=== PATIENT | female | born 1975 | race Two or more races ===

== ENCOUNTER 2020-10-24 10:02 | Outpatient (REF) | payer OTHER, SELFPAY ==
--- NOTE | 2020-10-24 10:04 | US_ITS ---
EXAMINATION: US THYROID CLINICAL INFORMATION: Nontoxic single thyroid nodule. COMPARISON: None TECHNIQUE: Linear transducer kulkarni-scale and color Doppler examination with attention to the region of the thyroid. FINDINGS: SIZE: Measurements of the thyroid lobes and nodules are given in sagittal, anteroposterior and transverse dimensions respectively. Right Thyroid Lobe: 5.0 x 1.7 x 1.6 cm, volume 7.1 mL. Parenchyma: The gland echotexture is heterogeneous. Thyroid vascularity is increased. Left Thyroid Lobe: 2.2 x 1.0 x 0.9 cm, volume 1.0 mL. Parenchyma: The gland echotexture is heterogeneous. Thyroid vascularity is increased. Isthmus: 0.4 cm in maximum AP dimension. RIGHT THYROID LOBE: There are 2 nodules seen. 1. Location: Superior/lateral. Size: 0.7 x 0.5 x 0.5 cm. Nodule characteristics: Isoechoic, smoothly marginated with intranodular flow. 2. Location: Inferior/lateral. Size: 1.0 x 0.3 x 0.6 cm. Nodule characteristics: Hypoechoic, smoothly marginated with intranodular flow. ISTHMUS: No nodules. LEFT THYROID LOBE: No nodules. NODES: No abnormal neck lymph node seen. US/US thyroid IMPRESSION: Diffuse heterogenous thyroid gland with 2 small subcentimeter nodules in left gland.
== END 2020-10-24 10:03 | disposition home or self-care (01) ==
LOC: HO.HMGCX 10:02
PROVIDERS: PCP Internal Medicine; Visit Provider Internal Medicine
DX: E04.1 Nontoxic single thyroid nodule (principal)
CPT/HCPCS: 76536

== ENCOUNTER 2021-01-30 06:34 | Outpatient (REF) | payer OTHER, SELFPAY ==
[2021-01-30 12:12] LABS: Alanine Aminotransferase 24 U/L (0-31); Albumin Level 4.4 g/dL (3.5-5.0); Alkaline Phosphatase 44 U/L (39-117); Anion Gap 15 (12-20); Aspartate Amino Transferase 22 U/L (5-31); Bilirubin Total 1.1 mg/dL (0.0-1.0); Blood Urea Nitrogen 6 mg/dL (9-16); Calcium 9.3 mg/dL (8.4-10.2); Carbon Dioxide 26 mmol/L (22-29); Chloride 104 mmol/L (96-108); Cholesterol 160 mg/dL; Estimated Glomerular Filt Rate > 60; Glucose Fasting 68 mg/dL (60-99); HDL Cholesterol 38 mg/dL; LDL Cholesterol Calculated 95 mg/dl; Potassium 4.5 mmol/L (3.3-5.1); Sodium 140 mmol/L (135-145); Triglycerides 137 mg/dL
[2021-01-30 12:35] LABS: TSH reflex Free T4 1.39 uIU/mL (0.32-4.0)
[2021-01-31 06:56] LABS: Thyroglobulin Antibodies <1 IU/mL (< or = 1); Thyroid Peroxidase Antibodies 58 IU/mL (<9)
== END 2021-01-30 06:35 | disposition home or self-care (01) ==
LOC: HO.HMGCLDS 06:34
PROVIDERS: PCP Internal Medicine; Visit Provider Internal Medicine
DX: E66.9 Obesity, unspecified (principal); E03.9 Hypothyroidism, unspecified; E04.1 Nontoxic single thyroid nodule
CPT/HCPCS: 36415; 80053; 80061; 84443; 86376; 86800

== ENCOUNTER 2021-03-27 09:45 | Outpatient (REF) | payer OTHER, SELFPAY ==
--- NOTE | ~2021-03-27 | MM_ITS ---
EXAMINATION: MM SCREENING DIGITAL BREAST TOMOSYNTHESIS, BILATERAL CLINICAL INFORMATION: Screening. Asymptomatic. No known family history breast cancer. The lifetime risk of breast cancer based on the Tyrer-Cuzick Model is 8%. COMPARISON: Outside hard copy images 04/29/2018 and outside bilateral targeted ultrasound ([facility], [place]). TECHNIQUE: Digital breast tomosynthesis is performed in both the craniocaudal and mediolateral oblique views along with computer-aided detection (CAD). Synthesized 2D images are generated from the tomosynthesis. Additional right CC view is provided. FINDINGS: There are scattered areas of fibroglandular density (ACR BI-RADS breast composition Category b). The right breast is similar to prior outside exam. There is no interval mass or architectural abnormality or parenchymal asymmetry. Neither breast shows abnormal calcifications. The axilla and skin contours are unremarkable. The left CC view has benign-appearing parenchymal asymmetry posterior medial breast extending beyond the posterior film margin. There is no correlate on the MLO view. Current study includes greater depth then achieved on outside exam and finding chronicity is unknown. Patient will be recalled in order to fully characterize the medial left breast. MM/MM tomosynthesis screening BI IMPRESSION: 1. Left: Parenchymal asymmetry posterior medial left breast on CC view extending beyond film margin. 2. Right: No mammographic evidence of malignancy. ASSESSMENT: BI-RADS 0: Incomplete - Need Additional Imaging Evaluation RECOMMENDATION: 1. Additional views of the left breast (3D CC medial; 3D ML). 2. Targeted ultrasound if warranted after review of the additional views. 3. Radiology department staff will contact the patient for additional imaging. This patient's information was entered into a reminder system with a target due date for their next mammogram.
== END 2021-03-27 09:46 | disposition home or self-care (01) ==
LOC: HO.MAMMO 09:45
PROVIDERS: Visit Provider Internal Medicine
DX: Z12.31 Encounter for screening mammogram for malignant neoplasm of breast (principal)
CPT/HCPCS: 77063; 77067

== ENCOUNTER 2021-04-04 07:42 | Outpatient (REF) | payer OTHER, SELFPAY ==
--- NOTE | ~2021-04-04 | MM_ITS ---
EXAMINATION: MM DIAGNOSTIC DIGITAL BREAST TOMOSYNTHESIS, LEFT CLINICAL INFORMATION: Recall from screening for benign-appearing parenchymal asymmetry posterior medial left breast, beyond field [id number] on prior outside imaging. COMPARISON: Mammography: 03/27/2021, outside exam 04/29/2018 ([facility], [place]). TECHNIQUE: Digital breast tomosynthesis is performed. 2D images are generated from the tomosynthesis. The following views are obtained: Spot CC, ML. FINDINGS: There are scattered areas of fibroglandular density (ACR BI-RADS breast composition Category b). The additional views show normal fibroglandular tissue at the posterior medial breast. There is no asymmetric density on the ML view. Results are discussed with the patient at time of visit, using an residential therapist. MM/MM tomosynthesis added views L IMPRESSION: No mammographic evidence of malignancy. ASSESSMENT: BI-RADS 2: Benign RECOMMENDATION: Routine annual mammography screening. This patient's information was entered into a reminder system with a target due date for their next mammogram.
== END 2021-04-04 07:43 | disposition home or self-care (01) ==
LOC: HO.MAMMO 07:42
PROVIDERS: Visit Provider Internal Medicine
DX: N64.89 Other specified disorders of breast (principal)
CPT/HCPCS: 77061; 77065

== ENCOUNTER 2021-04-24 08:34 | Outpatient (REF) | payer OTHER, SELFPAY ==
[2021-04-24 15:24] LABS: CT PCR NOT DETECTED (Not Detect.); NG PCR NOT DETECTED (Not Detect.)
[2021-04-25 08:38] LABS: BV Int Neg Control Negative (Negative); BV Int Pos Control Positive (Positive)
[2021-04-27 13:17] LABS: HPV mRNA E6/E7 rflx Not Detected (Not Detected)
== END 2021-04-24 08:35 | disposition home or self-care (01) ==
LOC: HO.LAB 08:34
PROVIDERS: PCP Internal Medicine; Visit Provider Advanced Practice Midwife
DX: Z01.411 Encounter for gynecological examination (general) (routine) with abnormal findings (principal); Z11.3 Encounter for screening for infections with a predominantly sexual mode of transmission; Z11.51 Encounter for screening for human papillomavirus (HPV); N85.2 Hypertrophy of uterus; N92.4 Excessive bleeding in the premenopausal period; E06.3 Autoimmune thyroiditis; Z78.9 Other specified health status; Z20.2 Contact with and (suspected) exposure to infections with a predominantly sexual mode of transmission
CPT/HCPCS: 87480; 87491; 87510; 87591; 87624; 87660; 88142

== ENCOUNTER 2021-05-15 11:16 | Outpatient (REF) | payer OTHER, SELFPAY ==
--- NOTE | ~2021-05-15 | US_ITS ---
EXAMINATION: PELVIC ULTRASOUND CLINICAL INFORMATION: Hypertrophy of the uterus COMPARISON: None TECHNIQUE: Transabdominal and transvaginal pelvic ultrasound was performed. Transvaginal exam was performed for better visualization of the uterus and ovaries. FINDINGS: The uterus is anteverted and measures 11 x 5 x 6.4 cm. The uterus is heterogeneous in attenuation with hypoechoic areas questionable for adenomyosis. The endometrium appears thickened measuring 2.2 cm. There are nabothian cysts in the cervix. The ovaries are normal-appearing. The right ovary measures 2.9 x 1.9 x 1.8 cm and the left ovary measures 2.2 x 1.8 x 1.4 cm. There is no fluid in the pelvis. US/US pelvic and transvaginal IMPRESSION: Enlarged heterogeneous uterus questionable for adenomyosis. Thickened endometrium measuring 2.2 cm. Normal-appearing ovaries.
== END 2021-05-15 11:17 | disposition home or self-care (01) ==
LOC: HO.US 11:16
PROVIDERS: Visit Provider Advanced Practice Midwife
DX: N85.2 Hypertrophy of uterus (principal); N92.4 Excessive bleeding in the premenopausal period
CPT/HCPCS: 76830; 76856

== ENCOUNTER → 2021-05-29 15:10 | Outpatient (BNVA) | payer OTHER, SELFPAY | PROVIDERS: Visit Provider Advanced Practice Midwife ==

== ENCOUNTER 2021-06-05 08:30 | Outpatient (REF) | payer OTHER, SELFPAY ==
[2021-06-05 12:48] LABS: MANUAL DIFF FLAG NO
[2021-06-05 12:58] LABS: Basophils Absolute Auto 0.1 X10*3/uL (0.0-0.2); Basophils Percent Auto 0.8 % (0-2); Eosinophils Absolute Auto 0.3 X10*3/uL (0.0-0.4); Eosinophils Percent Auto 3.1 % (0-4); Hematocrit 38.1 % (37-47); Hemoglobin 12.6 g/dl (12.0-16.0); Imm Gran Abs Auto 0.03 X10*3/uL (0.00-0.03); Imm Gran Pct Auto 0.4 % (0.0-0.4); Lymphocytes Absolute Auto 1.8 X10*3/uL (1.2-4.9); Lymphocytes Percent Auto 23.2 % (20-40); Mean Corpuscular HGB Conc 33.1 g/dl (31.0-35.0); Mean Corpuscular Volume 87.6 fL (80-98); Mean Platelet Volume 11.1 fL (9.4-12.3); Monocytes Absolute Auto 0.6 X10*3/uL (0.1-1.2); Monocytes Percent Auto 7.6 % (2-11); Neutrophils Absolute Auto 5.2 X10*3/uL (2.0-8.3); Neutrophils Percent Auto 64.9 % (45-73); Platelet Count 509 X10*3/uL (160-400); Red Blood Count 4.35 X10*6/uL (4.20-5.50); Red Cell Distribution Width 13.6 % (11.0-16.0); White Blood Count 7.9 X10*3/uL (4.8-10.8)
[2021-06-05 13:29] LABS: Iron 121 mcg/dL (30-160); Syphilis Screen Nonreactive (Nonreactive)
[2021-06-05 13:42] LABS: Folate 15.1 ng/mL (> or = 4.0); Vitamin B12 1132 pg/mL (200-900)
[2021-06-06 03:34] LABS: HBsAGNum1 0.18 S/CO (0.00-0.99); Hepatitis B Surface Antigen Negative (Negative); ~HepC Num1 0.18 S/CO (0.00-0.79); ~Hepatitis C Antibody Nonreactive (Nonreactive)
[2021-06-06 03:37] LABS: HIV AB/AG Nonreactive (Nonreactive)
[2021-06-07 15:09] LABS: Percent Iron Saturation 44 % (15-50); Total Iron Binding Capacity 274 mcg/dL (228-428); Unsaturated Iron Binding 153 ug/dL
[2021-06-09 12:55] LABS: Vitamin D 25-OH, D2 7 ng/mL; Vitamin D 25-OH, D3 21 ng/mL; Vitamin D 25-OH, Total 28 ng/mL (30-100)
== END 2021-06-05 08:31 | disposition home or self-care (01) ==
LOC: HO.HMGCLDS 08:30
PROVIDERS: PCP Internal Medicine; Visit Provider Advanced Practice Midwife
DX: Z01.84 Encounter for antibody response examination (principal); Z11.4 Encounter for screening for human immunodeficiency virus [HIV]; Z11.59 Encounter for screening for other viral diseases; Z20.2 Contact with and (suspected) exposure to infections with a predominantly sexual mode of transmission; D64.9 Anemia, unspecified; E55.9 Vitamin D deficiency, unspecified; Z78.9 Other specified health status
CPT/HCPCS: 36415; 82306; 82607; 82746; 83540; 85025; 86780; 86803; 87340; 87389

== ENCOUNTER 2021-06-22 09:33 | Outpatient (REF) | payer OTHER, SELFPAY ==
[2021-06-22 11:59] LABS: Free T4 (Free Thyroxine) 0.87 ng/dL (0.71-1.85); Thyroid Stimulating Hormone 1.81 uIU/mL (0.32-4.0); Vitamin D 25-OH Total 26.4 ng/mL (>30)
== END 2021-06-22 09:34 | disposition home or self-care (01) ==
LOC: HO.HMGCLDS 09:33
PROVIDERS: PCP Internal Medicine; Visit Provider Internal Medicine
DX: E06.3 Autoimmune thyroiditis (principal); E04.2 Nontoxic multinodular goiter; E55.9 Vitamin D deficiency, unspecified
CPT/HCPCS: 36415; 82306; 84439; 84443

== ENCOUNTER 2021-06-23 10:54 | Outpatient (REF) | payer OTHER, SELFPAY ==
[2021-06-24 13:35] LABS: CT PCR NOT DETECTED (Not Detect.); NG PCR NOT DETECTED (Not Detect.)
[2021-06-24 14:14] LABS: BV Int Neg Control Negative (Negative); BV Int Pos Control Positive (Positive)
== END 2021-06-23 10:55 | disposition home or self-care (01) ==
LOC: HO.LAB 10:54
PROVIDERS: PCP Internal Medicine; Visit Provider Advanced Practice Midwife
DX: R93.89 Abnormal findings on diagnostic imaging of other specified body structures (principal); N85.2 Hypertrophy of uterus; N92.4 Excessive bleeding in the premenopausal period; Z20.2 Contact with and (suspected) exposure to infections with a predominantly sexual mode of transmission
CPT/HCPCS: 58100; 81025; 87480; 87491; 87510; 87591; 87660; 88305

== ENCOUNTER → 2021-07-05 09:25 | Outpatient (BNVA) | payer OTHER, SELFPAY | PROVIDERS: PCP Internal Medicine; Visit Provider Advanced Practice Midwife ==

== ENCOUNTER 2021-07-13 11:03 | Outpatient (REF) | payer OTHER, SELFPAY ==
--- NOTE | 2021-07-13 11:24 | P.BOP_ITS ---
Brief Operative Note Date of Service: 07/13/21 Pre-op diagnosis: Thyroid US Procedure: EXAMINATION: US THYROID CLINICAL INFORMATION: Multinodular Thyroid COMPARISON: Prior TECHNIQUE: Linear transducer kulkarni-scale and color Doppler examination with attention to the region of the thyroid. FINDINGS: SIZE: Measurements of the thyroid lobes and nodules are given in sagittal, anteroposterior and transverse dimensions respectively. Right Thyroid Lobe: 1.86 x 4.73 x 1.43 cm, volume 6.59 mL. Parenchyma: The gland echotexture is diffusely heterogenous. Thyroid vascularity is normal. Left Thyroid Lobe: 2.24 x 1.05 x 0.72 cm, volume 0.887 mL. Parenchyma: The gland echotexture is diffusely heterogenous. Thyroid vascularity is normal. Isthmus: 0.4 cm in maximum AP dimension. There are no nodules visualized. NODES: Lymphadenopathy was not assessed. IMPRESSION: A diffusely heterogenous thyroid gland, consistent with pradeep's disease. The R lobe is larger than the L lobe. There are no true thyroid nodules visualized, only pseudonodules, thus no FNA biopsy was performed. Surgeon: Briseyda Bland, DO Was an Director Property used for this Procedure?: No Estimated blood loss (mL): 0
== END 2021-07-13 11:04 | disposition home or self-care (01) ==
LOC: HO.US 11:03
PROVIDERS: PCP Internal Medicine; Visit Provider Internal Medicine
DX: E04.2 Nontoxic multinodular goiter (principal)
CPT/HCPCS: 76536

== ENCOUNTER → 2021-07-27 12:25 | Outpatient (BNVA) | payer OTHER, SELFPAY | PROVIDERS: PCP Internal Medicine; Visit Provider Internal Medicine ==